=== PATIENT | female | born 1945 | race Hispanic/Latino ===

== ENCOUNTER 2018-01-01 00:37 | Observation (INO) | payer OTHER ==
[~2018-01-01] VITALS: Ht 154.9 cm; Wt 74.4 kg
[2018-01-01] MEDS ORDERED: ASPIRIN 325 MG TABLET ONE (00:49)
[2018-01-01 00:51] LABS: BASOPHILS % (AUTO) 0.1 % (0.0-5.0); HEMATOCRIT 40.8 % (36-48); LYMPHOCYTES % (AUTO) 11.6 % (21.0-51.0); MEAN CORPUSCULAR HEMOGLOBIN 29.4 pg (27.0-33.0); MEAN CORPUSCULAR HGB CONC 34.9 g/dL (32.0-36.0); MEAN CORPUSCULAR VOLUME 84.3 fL (79-99); MONOCYTES % (AUTO) 2.1 % (3.0-13.0); NEUTROPHILS % (AUTO) 86.2 % (40.0-77.0); PLATELET COUNT (AUTO) 344 K/uL (130-400); RED BLOOD CELL COUNT(AUTO) 4.84 MIL/uL (4.00-5.50); RED CELL DISTRIBUTION WIDTH 13.3 % (11.0-15.5); WHITE BLOOD COUNT (AUTO) 8.6 K/uL (4.8-10.8)
[2018-01-01] MEDS ORDERED: METOPROLOL TARTRATE 1 MG/ML 5ML VIAL IV ONE (00:56)
[2018-01-01 01:13] LABS: INR 0.95 (0.85-1.15); PARTIAL THROMBOPLASTIN TIME 30.4 SEC (26.3-35.5)
[2018-01-01 01:16] LABS: CREATININE 0.8 mg/dL (0.5-1.5); POTASSIUM 3.7 mmol/L (3.5-5.1)
[2018-01-01 01:26] LABS: B-TYPE NATRIURETIC PEPTIDE 172 pg/mL (0-100)
[2018-01-01 01:30] LABS: BILIRUBIN,TOTAL 0.4 mg/dL (0.2-1.0); CREATINE KINASE MB 1.4 ng/mL (0.5-3.6); TOTAL PROTEIN, SERUM 8.9 g/dL (6.0-8.3)
[2018-01-01] MEDS ORDERED: SODIUM CHLORIDE 0.9% 1000ML 1,000 ML IV SCH (06:14)
[2018-01-01] MEDS ORDERED: ACETAMINOPHEN 325 MG TAB PO PRN (06:15)
[2018-01-01 07:57] LABS: HEMATOCRIT 37.1 % (36-48); MEAN CORPUSCULAR HEMOGLOBIN 29.2 pg (27.0-33.0); MEAN CORPUSCULAR HGB CONC 34.4 g/dL (32.0-36.0); MEAN CORPUSCULAR VOLUME 84.8 fL (79-99); PLATELET COUNT (AUTO) 314 K/uL (130-400); RED BLOOD CELL COUNT(AUTO) 4.37 MIL/uL (4.00-5.50); RED CELL DISTRIBUTION WIDTH 13.5 % (11.0-15.5); WHITE BLOOD COUNT (AUTO) 7.4 K/uL (4.8-10.8)
[2018-01-01 08:11] LABS: ALBUMIN 3.1 g/dL (3.5-5.0); BILIRUBIN,TOTAL 0.3 mg/dL (0.2-1.0); CREATININE 0.9 mg/dL (0.5-1.5); MAGNESIUM 2.1 mg/dL (1.80-2.40); POTASSIUM 3.6 mmol/L (3.5-5.1); TOTAL PROTEIN, SERUM 7.3 g/dL (6.0-8.3)
[2018-01-01] MEDS ORDERED: PANTOPRAZOLE SODIUM 40 MG TABLET.DR PO ONE (08:39)
[2018-01-01 08:40] LABS: B-TYPE NATRIURETIC PEPTIDE 216 pg/mL (0-100)
[2018-01-01] MEDS ORDERED: DILTIAZEM HCL 120 MG CAP.SR.24H PO ONE (08:40)
[2018-01-01] MEDS ORDERED: ENOXAPARIN SODIUM 30 MG/0.3 ML SQ ONE (08:41)
[2018-01-01] MEDS: PANTOPRAZOLE SODIUM 40 MG TABLET.DR PO SCH (09:00)
[2018-01-01] MEDS: ENOXAPARIN SODIUM 30 MG/0.3 ML SQ SCH (09:00)
[2018-01-01] MEDS: DILTIAZEM HCL 120 MG CAP.SR.24H PO SCH (09:00)
[2018-01-01 19:22] LABS: CREATINE KINASE MB 0.7 ng/mL (0.5-3.6); CREATINE KINASE, TOTAL 39 U/L (21-232); MYOGLOBIN 30 ng/mL (10-92); TROPONIN I < 0.04 ng/mL (0.00-0.06)
[2018-01-01 20:50] VITALS: BP 130/64
[2018-01-01] MEDS ORDERED: [UNRECOGNIZED DRUG - OTHER] PO (22:19)
[2018-01-01] MEDS ORDERED: [UNRECOGNIZED DRUG - OTHER] PO (22:19)
[2018-01-01] MEDS ORDERED: CETIRIZINE PO (22:19)
[2018-01-01] MEDS ORDERED: PARACETAMOL PO (22:19)
[2018-01-01 23:53] VITALS: BP 129/53
[2018-01-02 04:25] VITALS: BP 140/65
[2018-01-02 07:38] VITALS: BP 147/87
[2018-01-02] MEDS: DILTIAZEM HCL 120 MG CAP.SR.24H PO SCH (09:00)
[2018-01-02] MEDS: PANTOPRAZOLE SODIUM 40 MG TABLET.DR PO SCH (09:22)
[2018-01-02] MEDS: ENOXAPARIN SODIUM 30 MG/0.3 ML SQ SCH (09:23)
[2018-01-02 11:51] VITALS: BP 143/89
== END 2018-01-02 13:00 | disposition home or self-care (01) ==
LOC: EDH 00:37 → EDHIP 00:38 → 2DH 20:33
PROVIDERS: ADMIT Family Medicine; ATTEND Family Medicine
DX: I48.2 Chronic atrial fibrillation (principal); I10 Essential (primary) hypertension; E86.0 Dehydration; E87.1 Hypo-osmolality and hyponatremia; Z90.49 Acquired absence of other specified parts of digestive tract; Z79.899 Other long term (current) drug therapy; Z79.82 Long term (current) use of aspirin
CPT/HCPCS: 36415; 71045; 80053 ×2; 82550 ×2; 82553 ×2; 83735; 83874 ×2; 83880 ×2; 84484 ×2; 85025; 85027; 85610; 85730; 93005; 93306; 96372; 99285; G0378 ×36; J1650 ×2; J3490; J7030

== ENCOUNTER 2019-09-18 01:51 | Emergency (ER) | payer OTHER ==
[~2019-09-18 01:51] MED LIST: CETIRIZINE PO; PARACETAMOL PO; [UNRECOGNIZED DRUG - OTHER] PO
[2019-09-18] MEDS ORDERED: ORPHENADRINE CITRATE 30 MG/ML ML ONE (03:23)
[2019-09-18] MEDS ORDERED: KETOROLAC TROMETHAMINE 30MG/ML ONE (03:23)
--- NOTE | 2019-09-18 03:39 | NUR ---
ER nurse came for a lidocaine patch from [facility]. I pulled it out for her and she says she will charge it to the patient in ER. Unable to scan from [facility]
== END 2019-09-18 03:50 | disposition home or self-care (01) ==
LOC: EDH 01:51
DX: F43.9 Reaction to severe stress, unspecified (principal); M54.6 Pain in thoracic spine; M62.838 Other muscle spasm; I10 Essential (primary) hypertension; I48.91 Unspecified atrial fibrillation; Z88.5 Allergy status to narcotic agent; Z88.0 Allergy status to penicillin; Z88.8 Allergy status to other drugs, medicaments and biological substances
CPT/HCPCS: 96372 ×2; 99284; J1885; J2360

== ENCOUNTER 2019-09-25 05:34 | Inpatient (IN) | payer OTHER ==
[~2019-09-25] VITALS: Ht 162.6 cm; Wt 67.4 kg
[2019-09-25] MEDS ORDERED: ONDANSETRON HCL 4 MG/2 ML VIAL ONE (06:16)
[2019-09-25] MEDS ORDERED: SODIUM CHLORIDE 0.9% 1000ML 1,000 ML IV ONE ×2 (06:17→07:41)
[2019-09-25] MEDS ORDERED: FAMOTIDINE/PF 20 MG/2 ML VIAL IV ONE (06:17)
[2019-09-25 06:51] LABS: BASOPHILS % (AUTO) 0.5 % (0.0-5.0); EOSINOPHILS % (AUTO) 0.7 % (0.0-8.0); HEMATOCRIT 40.8 % (36-48); LYMPHOCYTES % (AUTO) 11.8 % (21.0-51.0); MEAN CORPUSCULAR HEMOGLOBIN 30.4 pg (27.0-33.0); MEAN CORPUSCULAR HGB CONC 34.6 g/dL (32.0-36.0); MEAN CORPUSCULAR VOLUME 87.9 fL (79-99); MONOCYTES % (AUTO) 10.7 % (3.0-13.0); NEUTROPHILS % (AUTO) 76.3 % (40.0-77.0); PLATELET COUNT (AUTO) 261 K/uL (130-400); RED BLOOD CELL COUNT(AUTO) 4.64 MIL/uL (4.00-5.50); RED CELL DISTRIBUTION WIDTH 13.5 % (11.0-15.5); WHITE BLOOD COUNT (AUTO) 7.2 K/uL (4.8-10.8)
[2019-09-25 06:53] LABS: APPEARANCE,URINE Clear (CLEAR); BILIRUBIN,URINE Negative (NEGATIVE); COLOR,URINE Yellow (YELLOW); GLUCOSE, URINE (UA) Negative (NEGATIVE); KETONES,URINE Negative (NEGATIVE); LEUKOCYTE ESTERASE ,URINE Moderate (NEGATIVE); NITRATE,URINE Negative (NEGATIVE); OCCULT BLOOD,URINE Negative (NEGATIVE); PH,URINE 7.5 (5.0-8.0); PROTEIN,URINE Negative (NEGATIVE); UROBILINOGEN,URINE 0.2 mg/dL (0.2-1.0)
[2019-09-25 07:03] LABS: INR 0.98 (0.85-1.15); PARTIAL THROMBOPLASTIN TIME 27.9 SEC (26.3-35.5); PROTHROMBIN TIME 10.3 SEC (9.6-11.6)
[2019-09-25 07:19] LABS: ALBUMIN 3.7 g/dL (3.5-5.0); BILIRUBIN,TOTAL 0.8 mg/dL (0.2-1.0); CREATININE 0.7 mg/dL (0.5-1.5); POTASSIUM 3.7 mmol/L (3.5-5.1); TOTAL PROTEIN, SERUM 7.4 g/dL (6.0-8.3)
[2019-09-25 07:49] LABS: BACTERIA,URINE Rare /HPF (None Seen); RBC,URINE 0-1 /HPF (0-1); SQUAMOUS EPITHELIAL CELL,UR Rare /HPF (0-2); WBC,URINE 0-1 /HPF (0-1)
[2019-09-25] MEDS ORDERED: SODIUM CHLORIDE 0.9% 1000ML 1,000 ML IV SCH ×2 (08:06→21:00)
[2019-09-25] MEDS ORDERED: HYDRALAZINE HCL 20 MG/ML VIAL IV PRN (08:15)
[2019-09-25] MEDS ORDERED: ACETAMINOPHEN 325 MG TAB PO PRN (08:15)
[2019-09-25] MEDS ORDERED: ONDANSETRON HCL 4 MG/2 ML VIAL IV PRN (08:15)
[2019-09-25 09:25] LABS: HEMOGLOBIN A1C 6.6 % (4.0-6.0)
[2019-09-25 10:00] VITALS: BP 139/70
--- NOTE | 2019-09-25 10:00 | NUR ---
NOTE CAME IN TO ER WITH C/O HAVING ABDOMINAL PAIN FOR A FEW WEEKS AND WENT TO [place] [facility]. STATES SHE FELT ABDOMINAL PAIN THAT RADIATED TO HER LEGS BECAUSE HER BLOOD PRESSURE WAS VERY HIGH. I ASKED IF SHE CHECKS IT SHE SAID IT WAS 190'S SYSTOLIC. WHEN SHE CAME INTO ER WAS 120'S. SHE IS 100'S RIGHT NOW. HER SODIUM WAS LOW AT 123, WAS BOLUSED IN ER AND SHE WILL HAVE NS AT 65.
[2019-09-25] MEDS: FAMOTIDINE 20MG TAB 20 MG TAB PO SCH ×2 (11:25→21:06)
[2019-09-25] MEDS: ENOXAPARIN SODIUM 30 MG/0.3 ML SQ SCH (11:25)
[2019-09-25 11:30] VITALS: BP 117/57
[2019-09-25] MEDS ORDERED: LEVOFLOXACIN 500 MG/D5W 100 ML 100 ML IV SCH (11:30)
[2019-09-25] MEDS: INSULIN HUMULIN R 100 UNIT/ML 3ML SQ SCH ×3 (11:30→20:37)
[2019-09-25 13:29] LABS: CREATININE 0.7 mg/dL (0.5-1.5); POTASSIUM 3.3 mmol/L (3.5-5.1)
[2019-09-25] MEDS ORDERED: DEXTROSE 5%-WATER 1,000 ML IV SCH (13:45)
[2019-09-25] MEDS ORDERED: POTASSIUM CHLORIDE 10% ELIXIR 20 MEQ/15 ML UDCUP PO PRN (13:45)
[2019-09-25] MEDS ORDERED: LIDOCAINE HCL-MPF 1% 2ML VIAL IJ PRN (13:45)
[2019-09-25] MEDS ORDERED: POTASSIUM CHLORIDE 20MEQ/100ML 100 ML IV PRN (13:45)
[2019-09-25 16:13] VITALS: BP 115/57
[2019-09-25 18:33] LABS: CREATININE 0.8 mg/dL (0.5-1.5); POTASSIUM 3.6 mmol/L (3.5-5.1)
[2019-09-25 19:17] VITALS: BP 150/93
[2019-09-25] MEDS ORDERED: KETOROLAC TROMETHAMINE 15MG/ML ONE (20:55)
[2019-09-25] MEDS ORDERED: KETOROLAC TROMETHAMINE 15MG/ML IV PRN (21:00)
[2019-09-25] MEDS: POTASSIUM CHLORIDE 20 MEQ ERTAB PO PRN ×2 (21:06→23:26)
[2019-09-25] MEDS: LEVOFLOXACIN 500 MG/D5W 100 ML 100 ML IV SCH (21:10)
[2019-09-25 22:30] VITALS: BP 158/82
[2019-09-25] MEDS: HYDRALAZINE HCL 25 MG TABLET PO SCH (22:45)
[2019-09-25] MEDS ORDERED: ALPRAZOLAM 0.5 MG TABLET PO PRN (22:45)
[2019-09-25] MEDS ORDERED: HYDRALAZINE HCL 25 MG TABLET ONE (23:09)
[2019-09-25] MEDS ORDERED: ALPRAZOLAM 0.5 MG TABLET ONE (23:10)
[2019-09-26 03:31] VITALS: BP 121/66
[2019-09-26 04:24] LABS: BASOPHILS % (AUTO) 0.4 % (0.0-5.0); EOSINOPHILS % (AUTO) 1.1 % (0.0-8.0); LYMPHOCYTES % (AUTO) 12.9 % (21.0-51.0); MEAN CORPUSCULAR HEMOGLOBIN 31.3 pg (27.0-33.0); MEAN CORPUSCULAR HGB CONC 35.2 g/dL (32.0-36.0); MEAN CORPUSCULAR VOLUME 88.9 fL (79-99); MONOCYTES % (AUTO) 11.4 % (3.0-13.0); NEUTROPHILS % (AUTO) 74.2 % (40.0-77.0); NUCLEATED RED BLOOD CELLS 0.1 % (0.0-0.19); PLATELET COUNT (AUTO) 236 K/uL (130-400); RED BLOOD CELL COUNT(AUTO) 4.05 MIL/uL (4.00-5.50); RED CELL DISTRIBUTION WIDTH 13.2 % (11.0-15.5); WHITE BLOOD COUNT (AUTO) 5.9 K/uL (4.8-10.8)
[2019-09-26 04:51] LABS: CREATININE 0.7 mg/dL (0.5-1.5); POTASSIUM 4.3 mmol/L (3.5-5.1)
--- NOTE | 2019-09-26 05:17 | NUR ---
PATIENT UPDATE Pt was initially very anxious and restless at the beginning of the shift. Complaining about severe cramping on both legs, gen body weakness and obsessed with needing to take her bp meds from [place]. Explained the plan of care but still very upset . Giovanna Jarquin called twice overnight, 1st for the pain med, toradol 15 mg given slow iv push which the pt stated that didnt work at all after 1 hr. till very anxious, had been calling both her and son at home about us not giving her the right medication and no bp med at all.Pt was started on hydralazine 25 mg for the elevated bp of 158/82 and xanax 0.5 mg for the severe state of anxiety. Patient already threatening to call her for her to go against medical advise bec we dont give the right meds. Potassium of 3.6, medicated as per hypokalemia protocol, 2 20meq kdur tabs given last night, potassium corrected at 4.3 this am. Sodium last night was at 132, ongoing ivf of d5w switched to NS at 75 cc/hr, latest NA this am at 135. Pt slept very peacefully until 0500 this am and woke up feeling a whole lot better, asking staff for forgiveness for her being fuzzy last night, latest bp at 121/66 mmhg. Patient showered, talking with a more positive outllook with the treatment being given, will continue to monitor.
[2019-09-26] MEDS: INSULIN HUMULIN R 100 UNIT/ML 3ML SQ SCH ×4 (05:59→21:41)
[2019-09-26 08:00] VITALS: BP 155/80
--- NOTE | 2019-09-26 10:00 | NUR ---
INITIAL MET W PT ALONE, AAOX3, STATES LIVES A [place] SON AND DAUGHTER AND HER CHILDREN ARE VERY INVOLVED IN HER CARE. STATES SHE IS INDEPENDENT,NEEDS NO AIDS TO AMBULATE, HAS NO NEBS OR O2; HOJE SAFE AND ACCESSIBLE WITH SHOWER CHAIR. HAS HH BUT CANNOT REMEMBER NAME. NO [employer] SERVICES. DCP IS HOME CM TO FOLLOW Addendum: 09/26/19 at 1836 by GEETHA OLIVA RN CM Amended: Links added.
--- NOTE | 2019-09-26 10:00 | NUR ---
INITIAL MET W PT, ALONE, STATES LIVES W DAUGHTER WHO WILL PROVIDE TRANSPORT- STATES IS INDPENDENT OF ADLS, USES NO DME, HAS A CANE ON OCCIASION, HOME IS SAFE AND ACCESSIBLE, DOES NOT GO TO [facility] [place]. DCP IS HOME . PENDING TO TALK TO MARCELO HERNANDEZ FOLLOW UP APPTS/CARE. Addendum: 09/26/19 at 1841 by GEETHA OLIVA RN CM Amended: Links added.
[2019-09-26] MEDS ORDERED: DIPHENHYDRAMINE HCL 25 MG CAPSULE PO SCH (10:45)
[2019-09-26] MEDS ORDERED: PREDNISONE 20 MG TABLET PO SCH (10:45)
[2019-09-26 11:00] VITALS: BP 119/61
[2019-09-26] MEDS: HYDRALAZINE HCL 25 MG TABLET PO SCH ×2 (11:41→20:54)
[2019-09-26] MEDS: FAMOTIDINE 20MG TAB 20 MG TAB PO SCH ×2 (11:44→20:54)
[2019-09-26] MEDS: AMLODIPINE BESYLATE 5 MG TAB PO SCH (11:44)
[2019-09-26] MEDS: ENOXAPARIN SODIUM 30 MG/0.3 ML SQ SCH (11:47)
[2019-09-26 16:00] VITALS: BP 148/80
[2019-09-26 19:00] VITALS: BP 131/62
[2019-09-26] MEDS: LEVOFLOXACIN 500 MG/D5W 100 ML 100 ML IV SCH ×2 (20:54→21:42)
[2019-09-27] VITALS: BP 143/67
[2019-09-27] MEDS ORDERED: DIPHENHYDRAMINE HCL 25 MG CAPSULE PO PRN
[2019-09-27 04:00] VITALS: BP 142/64
[2019-09-27] MEDS ORDERED: LACTULOSE 20 GM/30 ML UDCUP PO SCH (05:00)
[2019-09-27 05:10] LABS: CREATININE 0.7 mg/dL (0.5-1.5); POTASSIUM 3.8 mmol/L (3.5-5.1)
[2019-09-27] MEDS: INSULIN HUMULIN R 100 UNIT/ML 3ML SQ SCH ×2 (06:40→11:11)
[2019-09-27 08:00] VITALS: BP 144/72
[2019-09-27] MEDS: ENOXAPARIN SODIUM 30 MG/0.3 ML SQ SCH (09:00)
[2019-09-27] MEDS: HYDRALAZINE HCL 25 MG TABLET PO SCH (09:39)
[2019-09-27] MEDS: FAMOTIDINE 20MG TAB 20 MG TAB PO SCH (09:39)
[2019-09-27] MEDS: AMLODIPINE BESYLATE 5 MG TAB PO SCH (09:42)
[2019-09-27] MEDS ORDERED: SENNOSIDES 8.6 MG TABLET ONE (10:23)
[2019-09-27 11:39] VITALS: BP 140/59
[2019-09-27] MEDS ORDERED: LEVO250T59 PO (13:15)
[2019-09-27] MEDS ORDERED: HYDR25 PO (13:15)
[2019-09-27] MEDS ORDERED: AMLO5TAB4 PO (13:15)
--- NOTE | 2019-09-27 15:40 | NUR ---
DC INSTRUCTIONS GIVEN TO PATIENT AND CAREGIVER USING TEACH BACK IV CATHETER DISCONTINUED INTACT, NO BLEEDING NOTED, RX TRANSMITTED TO [facility].
== END 2019-09-27 15:05 | disposition home or self-care (01) | DRG 690 ==
LOC: EDH 05:34 → OBSVTOIN 08:12 → EDHIP 08:12 → 4CH 10:10
PROVIDERS: ADMIT Internal Medicine; ATTEND Internal Medicine
DX: N30.90 Cystitis, unspecified without hematuria (principal); E87.1 Hypo-osmolality and hyponatremia; E86.1 Hypovolemia; T46.5X5A Adverse effect of other antihypertensive drugs, initial encounter; E87.8 Other disorders of electrolyte and fluid balance, not elsewhere classified; F41.9 Anxiety disorder, unspecified; I10 Essential (primary) hypertension; I25.10 Atherosclerotic heart disease of native coronary artery without angina pectoris; Z88.5 Allergy status to narcotic agent; Z88.0 Allergy status to penicillin; Z88.8 Allergy status to other drugs, medicaments and biological substances; Z90.49 Acquired absence of other specified parts of digestive tract; Y92.89 Other specified places as the place of occurrence of the external cause
CPT/HCPCS: 36415; 71045; 80048; 80053; 81001; 82550; 82948; 83036; 83605; 83690; 83735; 83930; 83935; 84300; 84443; 84484; 85025; 85610; 85730; 87804; 93005; G0378; J1650; J1815; J1885; J1956; J2405; J3490; J7030; J7070; Q0163

== ENCOUNTER 2020-06-29 12:26 | Emergency (ER) | payer MEDICAID, OTHER ==
[~2020-06-29 12:26] MED LIST changes: +AMLO5TAB4 PO; -CETIRIZINE PO; +HYDR25 PO; +LEVO250T59 PO; -PARACETAMOL PO; -[UNRECOGNIZED DRUG - OTHER] PO
[2020-06-29 13:50] LABS: BASOPHILS % (AUTO) 0.4 % (0.0-5.0); EOSINOPHILS % (AUTO) 0.7 % (0.0-8.0); HEMATOCRIT 37.3 % (36-48); MEAN CORPUSCULAR HGB CONC 34.9 g/dL (32.0-36.0); MEAN CORPUSCULAR VOLUME 86.1 fL (79-99); MONOCYTES % (AUTO) 7.5 % (3.0-13.0); PLATELET COUNT (AUTO) 260 K/uL (130-400); RED BLOOD CELL COUNT(AUTO) 4.33 MIL/uL (4.00-5.50); RED CELL DISTRIBUTION WIDTH 12.7 % (11.0-15.5); WHITE BLOOD COUNT (AUTO) 6.8 K/uL (4.8-10.8)
[2020-06-29 14:03] LABS: CREATININE 0.7 mg/dL (0.5-1.5); POTASSIUM 3.9 mmol/L (3.5-5.1)
[2020-06-29 14:07] LABS: ALBUMIN 3.6 g/dL (3.5-5.0); BILIRUBIN,TOTAL 0.3 mg/dL (0.2-1.0); TOTAL PROTEIN, SERUM 7.2 g/dL (6.0-8.3)
== END 2020-06-29 15:29 | disposition home or self-care (01) ==
LOC: EDH 12:26
DX: R55 Syncope and collapse (principal); R53.1 Weakness; I10 Essential (primary) hypertension; I48.91 Unspecified atrial fibrillation; Z88.6 Allergy status to analgesic agent; Z88.0 Allergy status to penicillin; Z98.890 Other specified postprocedural states
CPT/HCPCS: 36415; 80053; 84484; 85025; 93005